=== PATIENT | female | born 1955 | race African-American/Black ===

== ENCOUNTER 2017-12-23 19:02 | Emergency (ER) | payer OTHER ==
[~2017-12-23 19:02] MED LIST: COLC1TAB7 PO; TRAM50 PO
[2017-12-23 19:19] VITALS: BP 128/67; PULSE 82; RESP 16; TEMP 98.8; O2SAT 94
[2017-12-23] MEDS ORDERED: ASPI-183 PO (21:06)
[2017-12-23 21:09] VITALS: BP 179/89; PULSE 77; RESP 16; O2SAT 96
[2017-12-23] MEDS ORDERED: ACETAMINOPHEN 325 MG TAB PO ONE (21:30)
--- NOTE | 2017-12-23 21:46 | PD ---
HPI Chief Complaint: Headache Time Seen by Provider: 21:04 Travel History International Travel<30 days: No Contact w/Intl Traveler<30days: No Traveled to known affect area: No History of Present Illness HPI 62-year-old female presents emergency department complaining of bilateral temporal headache that started yesterday about 4 PM. States that the pain was constant with intermittent severity that radiates to the jaw and into the neck. Says that movement increases her pain. Says that she thought her vessels were "throbbing" on bilateral aspect of the temples. Says she had associated blurred vision but does not now. Denied nausea, vomiting or diarrhea. Says her pain was 10/10 at its worst. Currently it is 7/10 in severity, dull and again fluctuates in intensity. She denies numbness or tingling in extremities. Denies weakness. Patient is a history of hypertension, mitral valve surgery. Says she takes aspirin 325 daily. Denies history of any autoimmune disorders. Says she took some aspirin and Percocet last night which allowed her to sleep but continues to have pain. Denies aura, chest pain, shortness breath, abdominal pain. PFSH Past Medical History Diminished Hearing: No Gout: Yes : 2 Para: 2 Miscarriage: 0 : 0 Past Surgical History Cardiac Surgery: Yes (MITRAL VALVE) Social History Alcohol Use: No Tobacco Use: No Substance Use: No Allergies-Medications (Allergen,Severity, Reaction): Coded Allergies: No Known Allergies (Unverified Allergy, Unknown, 12/23/17) Reported Meds & Prescriptions Reported Meds & Active Scripts Active Prednisone 50 Mg Tab 50 Mg PO DAILY 10 Days Reported Aspirin 325 Mg Tab 325 Mg PO DAILY Review of Systems Except as stated in HPI: all other systems reviewed are Neg Physical Exam Narrative GENERAL: Well-developed, well-nourished in no apparent distress SKIN: Focused skin assessment warm/dry. HEAD: Atraumatic. Normocephalic. Bilateral temporal area tender to palpation right greater than left. EYES: Pupils equal and round. No scleral icterus. No injection or drainage. EOMI, no obvious photophobia ENT: No nasal bleeding or discharge. Mucous membranes pink and moist. NECK: Trachea midline. No JVD. No lymphadenopathy CARDIOVASCULAR: Regular rate and rhythm. No murmur appreciated. RESPIRATORY: No accessory muscle use. Clear to auscultation. Breath sounds equal bilaterally. GASTROINTESTINAL: Abdomen soft, non-tender, nondistended. No CVA tenderness MUSCULOSKELETAL: No obvious deformities. No clubbing. No cyanosis. No edema. NEUROLOGICAL: Awake and alert. No obvious cranial nerve deficits. Motor grossly within normal limits. Normal speech. PSYCHIATRIC: Appropriate mood and affect; insight and judgment normal. Data Data Last Documented VS Vital Signs Date Time Temp Pulse Resp B/P (MAP) Pulse Ox O2 Delivery O2 Flow Rate FiO2 12/23/17 21:09 77 16 179/89 (119) 96 Room Air 12/23/17 19:19 98.8 Orders Orders Complete Blood Count With Diff (12/23/17 21:21) Comprehensive Metabolic Panel (12/23/17 21:21) Westergren Sedimentation Rate (12/23/17 21:21) C-Reactive Protein (Crp) (12/23/17 21:21) Prothrombin Time / Inr (Pt) (12/23/17 21:21) Act Partial Throm Time (Ptt) (12/23/17 21:21) Acetaminophen (Tylenol) (12/23/17 21:30) Ct Brain W/O Iv Contrast(Rout) (12/23/17 ) Prednisone (Deltasone) (12/24/17 00:00) Ed Discharge Order (12/24/17 00:12) Labs Laboratory Tests Test 12/23/17 21:30 White Blood Count 8.0 TH/MM3 Red Blood Count 4.10 MIL/MM3 Hemoglobin 14.1 GM/DL Hematocrit 37.9 % Mean Corpuscular Volume 92.5 FL Mean Corpuscular Hemoglobin 34.5 PG Mean Corpuscular Hemoglobin Concent 37.3 % Red Cell Distribution Width 17.0 % Platelet Count 222 TH/MM3 Mean Platelet Volume 9.4 FL Neutrophils (%) (Auto) 50.9 % Lymphocytes (%) (Auto) 37.3 % Monocytes (%) (Auto) 9.3 % Eosinophils (%) (Auto) 1.9 % Basophils (%) (Auto) 0.6 % Neutrophils # (Auto) 4.1 TH/MM3 Lymphocytes # (Auto) 3.0 TH/MM3 Monocytes # (Auto) 0.7 TH/MM3 Eosinophils # (Auto) 0.2 TH/MM3 Basophils # (Auto) 0.0 TH/MM3 CBC Comment DIFF FINAL Differential Comment Erythrocyte Sedimentation Rate 29 mm/hr Prothrombin Time 10.0 SEC Prothromb Time International Ratio 1.0 RATIO Activated Partial Thromboplast Time 24.0 SEC Blood Urea Nitrogen 13 MG/DL Creatinine 0.89 MG/DL Random Glucose 227 MG/DL Total Protein 8.3 GM/DL Albumin 3.4 GM/DL Calcium Level 9.3 MG/DL Alkaline Phosphatase 68 U/L Aspartate Amino Transf (AST/SGOT) 20 U/L Alanine Aminotransferase (ALT/SGPT) 25 U/L Total Bilirubin 0.6 MG/DL Sodium Level 140 MEQ/L Potassium Level 3.9 MEQ/L Chloride Level 105 MEQ/L Carbon Dioxide Level 27.2 MEQ/L Anion Gap 8 MEQ/L Estimat Glomerular Filtration Rate 78 ML/MIN C-Reactive Protein 1.45 MG/DL [facility] Medical Decision Making Medical Screen Exam Complete: Yes Emergency Medical Condition: Yes Differential Diagnosis Temporal arteritis, tension headache, migraine Narrative Course 62-year-old female presents emergency department complaining of bitemporal headache started last night about 4 PM. She had associated blurred vision R>L but does not have blurred vision now. Labs and imaging studies ordered. Tylenol administered for headache. Says this significantly reduced her pain. CT head within normal limits. CBC & BMP Diagram 12/23/17 21:30 Total Protein 8.3 H, Albumin 3.4, Calcium Level 9.3, Alkaline Phosphatase 68, Aspartate Amino Transf (AST/SGOT) 20, Alanine Aminotransferase (ALT/SGPT) 25, Total Bilirubin 0.6 ESR 29 CRP elevated at 1.45 H&P suggestive of temporal arteritis. Patient and are reliable historians and understand the diagnosis. They understand the importance of follow up with their PCP and tire maintenance technician for further treatment and evaluation to reduce complications such as complete vision loss. Pt will received prednisone now. Prednisone for outpatient use. I advised that she follow up for an outpatient biopsy. She and her understand the importance of follow up. Up-to-date information given to patient regarding joint cell arteritis. Advised that if they could not obtain proper followup within a reasonable amount of time within 1 week that she return to the ED. Diagnosis Primary Impression: Temporal arteritis Referrals: Primary Care Physician Lead Setter Additional Instructions: Follow up with your primary care physician within 2-3 days. Take all medication as prescribed. As discussed, prednisone can cause increased thirst, weight gain, and increased risk for fracture. Use caution. If your symptoms persist or worsen return to the ED. If you are unable to obtain a follow up with a specialist, return to the ED. Scripts Prednisone (Prednisone) 50 Mg Tab 50 MG PO DAILY for 10 Days, #10 TAB 0 Refills Prov: Concha Tenorio MD 12/24/17 Disposition: 01 DISCHARGE HOME Condition: Stable Jess Wheeler Dec 23, 2017 21:46
--- NOTE | 2017-12-23 22:08 | RADRPT ---
EXAM DATE/TIME: 12/23/2017 21:47 [facility] COMPARISON: No previous studies available for comparison. INDICATIONS : Headaches. RADIATION DOSE: 37.21 CTDIvol (mGy) MEDICAL HISTORY : Cardiovascular disease. SURGICAL HISTORY : None. ENCOUNTER: Initial ACUITY: 1 day PAIN SCALE: 9/10 LOCATION: Bilateral cranial TECHNIQUE: Multiple contiguous axial images were obtained of the head. Using automated exposure control and adj ustment of the mA and/or kV according to patient size, radiation dose was kept as low as reasonably a chievable to obtain optimal diagnostic quality images. DICOM format image data is available electro nically for review and comparison. FINDINGS: CEREBRUM: The ventricles are normal for age. No evidence of midline shift, mass lesion, hemorrhage or acute in farction. No extra-axial fluid collections are seen. POSTERIOR FOSSA: The cerebellum and brainstem are intact. The 4th ventricle is midline. The cerebellopontine angle i s unremarkable. EXTRACRANIAL: The visualized portion of the orbits is intact. SKULL: The calvaria is intact. No evidence of skull fracture. CONCLUSION: Negative for an acute process. Vipul Martin MD FACR on December 23, 2017 at 22:05 Board Certified Radiologist. This report was verified electronically.
[2017-12-23 22:15] LABS: AUTOMATED NEUTROPHIL # 4.1 TH/MM3 (1.8-7.7); BASOPHIL % 0.6 % (0.0-2.0); EOSINOPHIL # 0.2 TH/MM3 (0-0.4); EOSINOPHIL % 1.9 % (0.0-4.0); HEMATOCRIT 37.9 % (35.0-46.0); HEMOGLOBIN 14.1 GM/DL (11.6-15.3); LYMPH % 37.3 % (9.0-44.0); MEAN CELL VOLUME 92.5 FL (80.0-100.0); MEAN CORPUSCULAR HEMOGLOBIN 34.5 PG (27.0-34.0); MEAN PLATELET VOLUME 9.4 FL (7.0-11.0); MONO % 9.3 % (0.0-8.0); MONOCYTE # 0.7 TH/MM3 (0-0.9); NEUT % 50.9 % (16.0-70.0); PLATELET COUNT 222 TH/MM3 (150-450)
[2017-12-23 22:19] LABS: MEAN CORPUSCULAR HGB CONC 37.3 % (32.0-36.0)
[2017-12-23 22:41] LABS: ALKALINE PHOSPHATASE 68 U/L (45-117); TOTAL BILIRUBIN ADULT 0.6 MG/DL (0.2-1.0); TOTAL PROTEIN 8.3 GM/DL (6.4-8.2)
[2017-12-23 23:00] LABS: ALBUMIN 3.4 GM/DL (3.4-5.0); ALT (GPT) 25 U/L (10-53); AST (GOT) 20 U/L (15-37); BICARBONATE 27.2 MEQ/L (21.0-32.0); BLOOD UREA NITROGEN 13 MG/DL (7-18); C-REACTIVE PROTEIN 1.45 MG/DL (0.00-0.30); CALCIUM 9.3 MG/DL (8.5-10.1); CHLORIDE 105 MEQ/L (98-107); CREATININE 0.89 MG/DL (0.50-1.00); GLOMERULAR FILTRATION RATE 78 ML/MIN (>89); GLUCOSE,RANDOM 227 MG/DL (74-106); SODIUM (NA) 140 MEQ/L (136-145)
[2017-12-24] MEDS ORDERED: predniSONE 50 MG TAB PO ONE
[2017-12-24] MEDS ORDERED: PRED50 PO (00:06)
--- NOTE | 2017-12-24 19:50 | EKG ---
Date Performed: 12/23/2017 Time Performed: 21:11:47 PTAGE: 62 years EKG: Sinus rhythm WITH SINUS ARRHYTHMIA POSSIBLE LEFT ATRIAL ENLARGEMENT BORDERLINE LEFT AXIS DEVIATION NONSPECIFIC T- WAVE ABNORMALITY Since the previous tracing, no significant change noted BORDERLINE ECG PREVIOUS TRACING : 07/06/2016 12.52 DOCTOR: Italo Collins Interpretating Date/Time 12/24/2017 19:47:37
== END 2017-12-24 00:34 | disposition home or self-care (01) ==
LOC: NEPC 19:02
DX: M31.6 Other giant cell arteritis (principal); R94.31 Abnormal electrocardiogram [ECG] [EKG]; I10 Essential (primary) hypertension; H53.8 Other visual disturbances; I25.10 Atherosclerotic heart disease of native coronary artery without angina pectoris; Z79.82 Long term (current) use of aspirin
CPT/HCPCS: 70450; 80053; 85025; 85610; 85652; 85730; 86140; 93005; 99284; J7512